=== PATIENT | male | born 1970 | race Caucasian/White ===

== ENCOUNTER 2019-09-11 09:17 | Day surgery (SDC) | payer BC ==
[~2019-09-11] VITALS: Ht 193 cm; Wt 114.1 kg
[~2019-09-11 09:17] MED LIST: ASPI500 PO; ASPI81EC; Altoprev40 MG PO; CARV25 PO; DIAZ5 PO; FLUO20 PO; HYDCHL25 PO; INSUASPI; INSUASPI SC; METF500; METF500 PO; NAPR500 PO; NIZA300 PO; OXYACE5T PO; TELM80; TELM80 PO
[2019-09-11] MEDS ORDERED: Humalog100 UNIT/1 SC (10:36)
[2019-09-11] MEDS ORDERED: AMLO10 PO (10:36)
--- NOTE | 2019-09-11 11:07 | NUR ---
09/11/19 1107 Shoshana Palomino 1038: DR. NIETO INTO ROOM 1039: TIMEOUT CONDUCTED 1041: DR. NIETO ADMINISTER 2MG VERSED IVP & 1MCG FENTANYL IVP 1053: INTERSCALENE NERVE BLOCK COMPLETE 4L/MIN VIA NASAL CANNULA AND PULSE OX ON PATIENT THROUGHOUT PROCEDURE, VSS, PT TOLERATED WELL. NO ISSUES OR COMPLICATIONS.
--- NOTE | 2019-09-11 14:46 | NUR ---
09/11/19 1446 Molly Montaño HOME W/POLAR PK AND INSTRUCTIONS FOR USE. ULTRASLING IN PLACE AND DEMO OF INCENTIVE SPIROMETER PRIOR TO DC HOME LOCO PO WELL WC TO CAR W/SBA
== END 2019-09-11 14:22 | disposition home or self-care (01) ==
LOC: ORSCSDS 09:17
PROVIDERS: Orthopaedic Surgery
PROC: 0RNJ4ZZ Release Right Shoulder Joint, Percutaneous Endoscopic Approach (ICD-10-PCS; principal; 2019-09-11 11:00)
PROC: 0LQ14ZZ Repair Right Shoulder Tendon, Percutaneous Endoscopic Approach (ICD-10-PCS; principal; 2019-09-11 11:00)
PROC: 0LS14ZZ Reposition Right Shoulder Tendon, Percutaneous Endoscopic Approach (ICD-10-PCS; principal; 2019-09-11 11:00)
DX: M75.111 Incomplete rotator cuff tear or rupture of right shoulder, not specified as traumatic (principal); M75.21 Bicipital tendinitis, right shoulder; M75.51 Bursitis of right shoulder; M75.41 Impingement syndrome of right shoulder; I10 Essential (primary) hypertension; E10.9 Type 1 diabetes mellitus without complications; Z79.4 Long term (current) use of insulin; Z79.899 Other long term (current) drug therapy; E78.5 Hyperlipidemia, unspecified; Z79.84 Long term (current) use of oral hypoglycemic drugs
CPT/HCPCS: 82947; A9270-GY; C1713; J0171; J0690; J1100; J2250; J2405; J2704; J2710; J2795; J3010; J7120

== ENCOUNTER → 2023-11-02 | Outpatient (CLI) | payer BC ==
[~2023-11-02] MED LIST changes: +AMLO10 PO; +Humalog100 UNIT/1 SC
[2023-11-02 17:20] LABS: Creatinine, Urine Random 60.1 mg/dL (27.00-270.00)
[2023-11-02 17:47] LABS: Microalb/Creat Ratio UR, Rand 2911.81 mg/g (0.000-30.000)
== END | disposition home or self-care (01) ==
LOC: LAB 07:45 → LAB SHORT 07:45
PROVIDERS: Internal Medicine Endocrinology, Diabetes & Metabolism
DX: E11.65 Type 2 diabetes mellitus with hyperglycemia (principal)
CPT/HCPCS: 82043; 82570

== ENCOUNTER → 2024-12-10 | Outpatient (CLI) | payer OTHER | END | disposition home or self-care (01) | LOC: LAB SHORT 12:41 → LAB 12:41 → PLD 12:41 | DX: E11.42 Type 2 diabetes mellitus with diabetic polyneuropathy (principal); E11.621 Type 2 diabetes mellitus with foot ulcer; L97.514 Non-pressure chronic ulcer of other part of right foot with necrosis of bone; L08.9 Local infection of the skin and subcutaneous tissue, unspecified; M86.171 Other acute osteomyelitis, right ankle and foot; M79.89 Other specified soft tissue disorders; R22.41 Localized swelling, mass and lump, right lower limb | CPT/HCPCS: 87070; 87071; 87075; 87077; 87147; 87186; 87205; 88305; 88311 ==